=== PATIENT | female | born 2005 | race Caucasian/White ===

== ENCOUNTER 2025-03-05 22:52 | Emergency (ER) | payer BC ==
[2025-03-05] MEDS: MORPHINE SULFATE 4 MG/ML SYRINGE IV STA (23:07)
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
[2025-03-05 23:12] VITALS: BP 140/81; PULSE 86; RESP 18; TEMP 97.5
[2025-03-05 23:20] LABS: Basophils # (A) 0.05 10*3/uL (0.00-0.10); Basophils % (A) 0.4 %; Eosinophils # (A) 0.05 10*3/uL (0.04-0.35); Eosinophils % (A) 0.4 %; HCT 37.7 % (37.2-46.3); HGB 12.9 g/dL (12.0-15.0); Lymphocytes # (A) 3.15 10*3/uL (0.90-5.00); Lymphocytes % (A) 27.2 %; MCH 29.9 pg (27.0-32.0); MCHC 34.2 g/dL (32.0-37.0); MCV 87.3 fL (80.0-97.0); Mean Platelet Volume 9.5 fL (9.5-12.2); Monocytes # (A) 0.58 10*3/uL (0.20-1.00); Neutrophils # (A) 7.71 10*3/uL (1.80-7.70); Neutrophils % (A) 66.7 %; Platelet Count 288 10*3/uL (140-440); RBC 4.32 10*6/uL (4.10-5.20); RDW 11.9 % (11.5-14.5); WBC 11.57 10*3/uL (4.50-10.00)
[2025-03-05 23:31] LABS: INR 1.1 (<1.2); Partial Thromboplastin Time 23.3 sec (22.0-30.0); Prothrombin Time 12.3 sec (10.0-12.5)
[2025-03-05 23:32] LABS: ALT 16 U/L (4-34); AST 20 U/L (14-36); African American GFR (CKD) >90 (>60 ml/min/1.73 sqM); Albumin 4.2 g/dL (3.5-5.0); Alcohol <10 mg/dL; Alkaline Phosphatase 70 U/L (38-126); Anion Gap 10 mmol/L; Blood Urea Nitrogen 17 mg/dL (7-17); Calcium 9.6 mg/dL (8.4-10.2); Carbon Dioxide 25 mmol/L (22-30); Chloride 103 mmol/L (98-107); Glucose 112 mg/dL (74-99); Non-African American GFR(CKD) >90 (>60 ml/min/1.73 sqM); Potassium 3.7 mmol/L (3.5-5.1); Sodium 138 mmol/L (137-145); Total Bilirubin 0.3 mg/dL (0.2-1.3); Total Protein 6.8 g/dL (6.3-8.2)
--- NOTE | 2025-03-05 23:40 | CT ---
EXAM: CT Head Without Intravenous Contrast CLINICAL HISTORY: ITS.REASON CT Reason: trauma TECHNIQUE: Axial computed tomography images of the head/brain without intravenous contrast. CTDI is 45.3 mGy and DLP is 1066 mGy-cm. This CT exam was performed using one or more of the following dose reduction techniques: automated exposure control, adjustment of the mA and/or kV according to patient size, and/or use of iterative reconstruction technique. COMPARISON: No relevant prior studies available. FINDINGS: Brain: No acute intracranial hemorrhage, mass effect, or parenchymal edema. No evident loss of murillo-white matter differentiation. No significant white matter disease. Ventricles: No hydrocephalus. Bones/joints: Posterior decompressive surgery with suboccipital craniectomy and resection of the posterior arch of C1. No skull fracture. Soft tissues: Unremarkable. Sinuses: Unremarkable as visualized. Mastoid air cells: No significant mastoid effusion. IMPRESSION: No acute intracranial process. EXAM: CT Cervical Spine Without Intravenous Contrast CLINICAL HISTORY: ITS.REASON CT Reason: trauma TECHNIQUE: Axial computed tomography images of the cervical spine without intravenous contrast. CTDI is 11 mGy and DLP is 280.8 mGy-cm. This CT exam was performed using one or more of the following dose reduction techniques: automated exposure control, adjustment of the mA and/or kV according to patient size, and/or use of iterative reconstruction technique. COMPARISON: No relevant prior studies available. FINDINGS: Vertebrae: Resection of the posterior arch of C1. No acute fracture or subluxation. Discs/spinal canal/neural foramina: No acute findings. No spinal canal stenosis. Soft tissues: Unremarkable. IMPRESSION: No acute findings in the cervical spine.
--- NOTE | 2025-03-06 | XR ---
EXAM: XR Chest, 1 View CLINICAL HISTORY: ITS.REASON XR Reason: trauma TECHNIQUE: Frontal view of the chest. COMPARISON: No relevant prior studies available. FINDINGS: Lungs: No consolidation. Pleural space: No significant pleural effusion. No pneumothorax. Heart: No cardiomegaly or pulmonary vascular congestion. Bones/joints: No acute fracture. No dislocation. IMPRESSION: No evidence of acute cardiopulmonary disease.
--- NOTE | 2025-03-06 00:01 | XR ---
EXAM: XR Pelvis, 1 or 2 Views CLINICAL HISTORY: ITS.REASON XR Reason: Trauma TECHNIQUE: Frontal view of the pelvis. COMPARISON: No relevant prior studies available. FINDINGS: Bones/joints: No acute fracture. No dislocation. Soft tissues: Unremarkable. IMPRESSION: No acute osseous findings.
--- NOTE | 2025-03-06 00:02 | XR ---
EXAM: XR Right Tibia and Fibula, 2 Views CLINICAL HISTORY: ITS.REASON XR Reason: trauma TECHNIQUE: Frontal and lateral views of the right tibia and fibula. COMPARISON: No relevant prior studies available. FINDINGS: Bones/joints: Acute displaced transverse fractures of the tibial and fibular shafts 15 cm above the ankle joint. Distal fragments demonstrate one-half shaft-width lateral displacement. Soft tissues: Soft tissue swelling. No radiopaque foreign body. IMPRESSION: Acute displaced transverse fractures of the tibial and fibular shafts 15 cm above the ankle joint. Distal fragments demonstrate 1-half shaft- width lateral displacement.
[2025-03-06] MEDS: MORPHINE SULFATE 4 MG/ML SYRINGE IVP STA (00:05)
[2025-03-06] MEDS: ceFAZolin 2 GM in DEXTROSE 5% IN WATER 50 ML IVPB ONE (00:09)
[2025-03-06] MEDS: MORPHINE SULFATE 4 MG/ML SYRINGE IV STA (00:13)
== END 2025-03-06 00:40 | disposition other institution (70) ==
LOC: EC 22:52
DX: S82.301A Unspecified fracture of lower end of right tibia, initial encounter for closed fracture (principal); S82.221A Displaced transverse fracture of shaft of right tibia, initial encounter for closed fracture; Z91.018 Allergy to other foods; Z88.8 Allergy status to other drugs, medicaments and biological substances; V49.40XA Driver injured in collision with unspecified motor vehicles in traffic accident, initial encounter; Y92.410 Unspecified street and highway as the place of occurrence of the external cause
CPT/HCPCS: 99291 ×2; 29515 ×2; 96375 ×2; 96365 ×2; 96376 ×2; 36415; 93005; 86900; 86901; 80053; 83605; 84484; 85025; 85610; 85730; 86850; 80320; 72170; 73590; 71045; 72125; 70450; G0390; J2270 ×2; J0690